=== PATIENT | female | born 1950 | race Caucasian/White ===

== ENCOUNTER → 2018-01-08 09:30 | Outpatient (CLI) | payer OTHER, SELFPAY ==
[2018-01-08 10:56] LABS: Hematocrit 41.8 % (36-46); Hemoglobin 14.2 g/dL (12.0-16.0); Mean Corpuscular HGB Conc 34.1 % (30-36); Mean Corpuscular Hemoglobin 31.5 PG (26-34); Mean Corpuscular Volume 92.4 fL (80-100); Platelet Count 320 X10^3/uL (150-400); Red Blood Cell Count 4.52 X10^6/uL (4.0-5.2); Red Cell Distribution Width 13.5 % (11.6-14.8); White Blood Cell Count 5.4 X10^3/uL (4.5-11.0)
[2018-01-08 11:01] LABS: Hemoglobin A1C% w Est Avg Glu 5.4 % (4.0-6.0)
[2018-01-08 11:36] LABS: Alanine Aminotransferase 32 IU/L (9-52); Albumin 4.4 g/dL (3.5-5.0); Albumin Globulin Ratio 1.5 (1.0-2.8); Alkaline Phosphatase 78 U/L (38-126); Aspartate Aminotransferase 31 IU/L (14-36); BUN Creatinine Ratio 22.9 (6-22); Bilirubin Total 0.9 mg/dL (0.2-1.3); Blood Urea Nitrogen 16 mg/dL (7-17); Calcium 9.2 mg/dL (8.4-10.2); Carbon Dioxide 32 mmol/L (22-32); Chloride 96 mmol/L (98-107); Cholesterol 260 mg/dL (140-199); Estimated Glomerular Filt Rate > 60.0 mL/min (>60); Globulin 2.9 g/dL (1.7-4.1); Glucose 100 mg/dL (80-110); HDL Cholesterol 62 mg/dL (40-60); HEMOLYSIS < 15 (0-50); LDL Cholesterol Calculated 168 mg/dL (<100); Potassium 3.8 mmol/L (3.4-5.1); Sodium 139 mmol/L (137-145); Total Protein 7.3 g/dL (6.3-8.2); Triglycerides 152 mg/dL (35-150)
[2018-01-08 12:16] LABS: Hep C Virus Ab w/Reflex Quant NEGATIVE s/c (NEGATIVE)
== END ==
PROVIDERS: PCP Nurse Practitioner Family; Visit Provider Nurse Practitioner Family
DX: Z13.1 Encounter for screening for diabetes mellitus (principal); I10 Essential (primary) hypertension; E78.5 Hyperlipidemia, unspecified; Z11.59 Encounter for screening for other viral diseases
CPT/HCPCS: 36415; 80053; 80061; 83036; 84443; 85027; 86803

== ENCOUNTER → 2019-10-12 10:46 | Outpatient (CLI) | payer OTHER, SELFPAY ==
--- NOTE | 2019-10-12 10:47 | DI.RAD.S_ITS ---
PROCEDURE: XR WRIST LT MIN 3V INDICATIONS: l wrist pain TECHNIQUE: 4 views of the wrist were acquired. COMPARISON: None. FINDINGS: Bones: No fractures or dislocations. No suspicious bony lesions. Degenerative changes are seen throughout, which are most prominent involving the 1st carpometacarpal joint. Milder degenerative changes are seen elsewhere. Scaphoid view: No navicular fractures are seen. Soft tissues: No suspicious soft tissue calcifications. IMPRESSION: No displaced fractures are seen. If there is snuffbox tenderness (or other clinical suspicion for a fracture not seen on these images) then a repeat examination would be recommended in 10 to 14 days, following splinting. Dictated by: Jasbir Li M.D. on 10/12/2019 at 10:18 Approved by: Jasbir Li M.D. on 10/12/2019 at 10:19
== END ==
PROVIDERS: Family Provider Nurse Practitioner Family; PCP Internal Medicine; Referring Provider Physician Assistant; Visit Provider Physician Assistant
DX: M25.532 Pain in left wrist (principal)
CPT/HCPCS: 73110

== ENCOUNTER → 2019-10-24 16:51 | Outpatient (CLI) | payer OTHER, SELFPAY ==
--- NOTE | 2019-10-24 17:11 | DI.MG.S_ITS ---
Patient Name: ZACHERY SANCHEZ date: 1950 Sex: F Attending Physician: Tavia Indications: Date: 10/24/2019 17:30 At the request of: GREG PALMA Procedure: MM screening mammo BI BILATERAL DIGITAL SCREENING MAMMOGRAM 3D/2D WITH CAD: 10/24/2019 CLINICAL: Routine screening. Comparison is made to exams dated: 09/19/2016 mammogram, 11/04/2014 mammogram, and 01/08/2011 mammogram - [facility]. The tissue of both breasts is heterogeneously dense. This may lower the sensitivity of mammography. Current study was also evaluated with a Computer Aided Detection (CAD) system. No significant masses, calcifications, or other findings are seen in either breast. There has been no significant interval change. IMPRESSION: NEGATIVE There is no mammographic evidence of malignancy. A 1 year screening mammogram is recommended. This exam was interpreted at Station ID: [id number]. NOTE: For mammograms, a report in lay terms will be sent to the patient. Approximately 15% of breast malignancies will not be visualized mammographically. In the management of a palpable breast mass, a negative mammogram must not discourage biopsy of a clinically suspicious lesion. Electronically Signed By: Omega foster/elias:10/25/2019 09:43:10 letter sent: Normal Exam ACR BI-RADS Category 1: Negative 3341F
== END ==
PROVIDERS: Family Provider Nurse Practitioner Family; PCP Internal Medicine; Referring Provider Internal Medicine; Visit Provider Internal Medicine
DX: Z12.31 Encounter for screening mammogram for malignant neoplasm of breast (principal)
CPT/HCPCS: 77063; 77067

== ENCOUNTER → 2020-05-06 08:54 | Outpatient (CLI) | payer OTHER, SELFPAY ==
[2020-05-06] MEDS: COVID-19 VACC, Ad26(JANSSEN)/PF 0.5 ML IM (09:04)
== END ==
PROVIDERS: Family Provider Nurse Practitioner Family; PCP Internal Medicine; Visit Provider Internal Medicine
DX: Z23 Encounter for immunization (principal)
CPT/HCPCS: 0031A; 91303

== ENCOUNTER → 2022-04-18 12:18 | Outpatient (CLI) | payer OTHER, SELFPAY | PROVIDERS: Family Provider Nurse Practitioner Family; PCP Internal Medicine; Referring Provider Internal Medicine; Visit Provider Internal Medicine | DX: Z13.820 Encounter for screening for osteoporosis (principal); Z78.0 Asymptomatic menopausal state; M85.851 Other specified disorders of bone density and structure, right thigh; Z87.311 Personal history of (healed) other pathological fracture | CPT/HCPCS: 77080 ==

== ENCOUNTER → 2022-04-20 07:42 | Outpatient (CLI) | payer OTHER, SELFPAY ==
--- NOTE | 2022-04-20 | DI.MG.S_ITS ---
BILATERAL DIGITAL SCREENING MAMMOGRAM 3D/2D WITH CAD: 04/20/2022 CLINICAL: Routine screening. Comparison is made to exams dated: 10/24/2019 mammogram, 09/19/2016 mammogram, and 11/04/2014 mammogram - [facility]. Both breasts are heterogeneously dense, which may obscure small masses (category c / 51-75% glandular tissue). Current study was also evaluated with a Computer Aided Detection (CAD) system. No significant masses, calcifications, or other findings are seen in either breast. There has been no significant interval change. IMPRESSION: NEGATIVE There is no mammographic evidence of malignancy. A 1 year screening mammogram is recommended. Based on the Tyrer Cuzick model (a risk assessment model) the patient's lifetime risk is 4.7% and her 10 year risk is 2.8%. According to the ACR, ACS, and NCCN guidelines, an annual breast MRI exam along with mammogram is recommended if the patient's lifetime risk is 20% or greater. This exam was interpreted at Station ID: [id number]. NOTE: For mammograms, a report in lay terms will be sent to the patient. Approximately 15% of breast malignancies will not be visualized mammographically. In the management of a palpable breast mass, a negative mammogram must not discourage biopsy of a clinically suspicious lesion. Electronically Signed By: Omega foster/elias:04/20/2022 08:07:32 letter sent: Normal Exam ACR BI-RADS Category 1: Negative 3341F
== END ==
PROVIDERS: Family Provider Nurse Practitioner Family; PCP Internal Medicine; Referring Provider Internal Medicine; Visit Provider Internal Medicine
DX: Z12.31 Encounter for screening mammogram for malignant neoplasm of breast (principal)
CPT/HCPCS: 77063; 77067

== ENCOUNTER → 2022-05-04 16:59 | Outpatient (CLI) | payer OTHER, SELFPAY ==
--- NOTE | 2022-05-04 | DI.RAD.S_ITS ---
PROCEDURE: XR HIP W PEL IF DONE LT 2V INDICATIONS: [employer]ef[employer] HIP PAIN TECHNIQUE: AP pelvis with lateral view of the left hip. COMPARISON: None. FINDINGS: Bones: No acute fractures or dislocations. Pelvic ring appears intact. No suspicious bony lesions. Severe joint space narrowing is seen in the left hip with subchondral sclerosis, marginal osteophyte formation, and remodeling of the articular surfaces. There is chronic superolateral subluxation of the humeral head. Mild degenerative changes are seen in the right hip. Degenerative changes also noted in the included lumbar spine. Soft tissues: The visualized bowel gas pattern is normal. No suspicious soft tissue calcifications. IMPRESSION: 1. Severe asymmetric degenerative changes within the left hip with subchondral sclerosis and remodeling of the articular surfaces. There is mild chronic superolateral subluxation of the femoral head relative to the acetabulum. 2. Mild right hip osteoarthrosis. 3. Degenerative changes in the included lumbar spine. Approved by: Brian Welsh M.D. on 05/05/2022 at 10:30
== END ==
PROVIDERS: Family Provider Nurse Practitioner Family; PCP Internal Medicine; Referring Provider Internal Medicine; Visit Provider Internal Medicine
DX: M24.452 Recurrent dislocation, left hip (principal); M16.11 Unilateral primary osteoarthritis, right hip; M25.552 Pain in left hip; M47.816 Spondylosis without myelopathy or radiculopathy, lumbar region
CPT/HCPCS: 73502

== ENCOUNTER → 2022-07-20 16:25 | Outpatient (CLI) | payer OTHER, SELFPAY ==
[2022-07-20 16:56] LABS: Appearance Urine UA CLEAR; Bilirubin Urine UA NEGATIVE (NEGATIVE); Color Urine UA YELLOW; Glucose Urine UA NEGATIVE (Negative); Ketones Urine UA NEGATIVE (NEGATIVE); Leukocyte Esterase Urine UA NEGATIVE (NEGATIVE); Nitrite Urine UA NEGATIVE (Negative); Occult Blood Urine UA NEGATIVE (Negative); Protein Urine UA NEGATIVE (Negative); Specific Gravity Urine UA <=1.005 (1.000-1.035); Urobilinogen Urine UA 0.2 E.U./dL (0.2)
[2022-07-20 17:01] LABS: Add Manual Diff / Slide Review NO; Basophils Absolute Auto 100 /uL (0-100); Basophils Percent Auto 0.9 % (0-2); Eosinophils Absolute Auto 100 /uL (0-450); Eosinophils Percent Auto 1.5 % (2-4); Hematocrit 38.8 % (36-46); Hemoglobin 13.6 g/dL (12.0-16.0); Lymphocytes Absolute Auto 3900 /uL (1100-4500); Lymphocytes Percent Auto 39.8 % (25-40); Mean Corpuscular HGB Conc 34.9 % (30-36); Mean Corpuscular Hemoglobin 31.5 PG (26-34); Mean Corpuscular Volume 90.2 fL (80-100); Monocytes Absolute Auto 800 /uL (0-900); Monocytes Percent Auto 7.7 % (3-14); Neutrophils Absolute Auto 5000 /uL (1500-7000); Neutrophils Percent Auto 50.1 % (50-75); Platelet Count 347 X10^3/uL (150-400); Red Blood Cell Count 4.31 X10^6/uL (4.0-5.2); Red Cell Distribution Width 14.2 % (11.6-14.8); White Blood Cell Count 9.9 X10^3/uL (4.5-11.0)
[2022-07-20 17:09] LABS: Bacteria Urine None Seen; Culture Indicated Urine Cult Not Indicated; RBC Urine None Seen (0-5/HPF); Squamous Epithelial Cell Urine None Seen (0-5/HPF); WBC Urine None Seen (0-5/HPF)
[2022-07-20 18:06] LABS: BUN Creatinine Ratio 30.4 (6-22); Blood Urea Nitrogen 17 mg/dL (7-17); Calcium 9.9 mg/dL (8.4-10.2); Carbon Dioxide 30 mmol/L (22-32); Chloride 94 mmol/L (98-107); Estimated Glomerular Filt Rate > 60 mL/min (>60); Glucose 92 mg/dL (80-110); HEMOLYSIS 25 (0-50); Potassium 4.2 mmol/L (3.4-5.1); Sodium 133 mmol/L (137-145)
[2022-07-21 06:04] LABS: x Labcorp Estim. Avg Glu (eAG) 111 mg/dL (.); x Labcorp Hemoglobin A1c 5.5 % (4.8-5.6)
== END ==
PROVIDERS: Family Provider Nurse Practitioner Family; PCP Internal Medicine; Referring Provider Orthopaedic Surgery; Visit Provider Orthopaedic Surgery
DX: Z01.812 Encounter for preprocedural laboratory examination (principal); N39.0 Urinary tract infection, site not specified; R73.9 Hyperglycemia, unspecified
CPT/HCPCS: 36415; 80048; 81001; 83036; 85025; 93005; 93010

== ENCOUNTER 2022-07-28 08:48 | Day surgery (SDC) | payer OTHER, SELFPAY ==
[2022-07-28] VITALS (13 sets, daily range): BP systolic 127–168; BP diastolic 56–95; PULSE 56–77; RESP 16–19; TEMP 36.1–37.3; O2SAT 94–98
--- NOTE | 2022-07-28 | DI.RAD.S_ITS ---
PROCEDURE: XR PELVIS 1-2V INDICATIONS: intra op TECHNIQUE: Intra-operative view of the pelvis and hip acquired. COMPARISON: None. FINDINGS: Bones: Intraoperative devices prior to placement of arthroplasty prostheses are in expected positions. No fractures or suspicious bony lesions. Soft tissues: Overlying surgical retractors are present, along with other intraoperative changes. IMPRESSION: Left Total hip trial hardware, without significant leg length discrepancy. Dictated by: Lanre Lozano M.D. on 07/28/2022 at 14:14 Approved by: Lanre Lozano M.D. on 07/28/2022 at 14:15
--- NOTE | 2022-07-28 07:19 | DI.RAD.S_ITS ---
PROCEDURE: XR HIP W PEL IF DONE LT 2V INDICATIONS: JANAY TECHNIQUE: AP pelvis and lateral view of the left hip acquired. COMPARISON: [facility], [place], XR HIP W PEL IF DONE LT 2V, 05/04/2022, 17:13. FINDINGS: Bones: Patient is status post left hip arthroplasty, with hardware components in expected positions. The hip joint appears congruent. The visualized bony structures appear intact. Soft tissues: Overlying postoperative changes are noted. No suspicious soft tissue densities. IMPRESSION: Expected postoperative appearance of the left total hip arthroplasty. Dictated by: Lanre Lozano M.D. on 07/28/2022 at 15:24 Approved by: Lanre Lozano M.D. on 07/28/2022 at 15:24
[2022-07-28] MEDS: PREGABALIN 75 MG CAPSULE PO (09:45)
[2022-07-28] MEDS: CELECOXIB 200 MG CAPSULE PO (09:45)
[2022-07-28] MEDS: ACETAMINOPHEN 325 MG TABLET 975 MG PO (09:46)
[2022-07-28] MEDS: VANCOMYCIN 1,000 MG/200 ML PIGGYBACK 200 MG IV (10:04)
--- NOTE | 2022-07-28 10:45 | PM.PREOP ---
Pre-operative Note Interval Note History & Physical reviewed/Exam performed by Physician: Yes Changes to H&P: No
--- NOTE | 2022-07-28 10:46 | PM.OP.1 ---
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 Non-operative management has failed and the patient has requested total hip replacement. The risks, benefits and alternatives to surgery were discussed with the patient prior to proceeding. Risks discussed included, but were not limited to, failure to relieve pain, leg length discrepancy, dislocation, stiffness, infection, nerve damage, deep venous thrombosis, pulmonary embolism, stroke, coma, heart attack, permanent paralysis and , as well as the potential need for eventual revision of the prosthetic. Surgeon: Aurora Whitlock Account Resolution Specialist: Neena Sanchez Anesthesia Type: General Operative Notes Findings: Severe hip osteoarthritis, markedly abnormal acetabulum, adequate stability and adequate stability and positioning of the acetabulum Closure Type: primary Specimen(s): none sent Prosthetic devices, grafts, tissues, transplants, or devices: Whitlock and nephew redapt acetabular cup size 54, 4 screws 3 locking and 1 standard, dual mobility liner, polar size 0 collared femoral stem, 42 x 54 mm dual mobility, 20 mm +0 femoral head Estimated Blood Loss (mL): 250 Procedure in detail: The patient was seen in the pre-operative area, where the patient identified the left hip as the operative site and this was marked with my initials. The patient received pre-operative antibiotics and was taken to the operating room and placed on the operative table in the right lateral decubitus position after satisfactory anesthesia. A multimedia manager out was performed. The left leg was prepared from the ankle to the iliac crest with ChloroPrep in the usual fashion and draped through sterile drapes. A PA was used throughout the procedure and was essential for retraction hemostasis and safe implantation of the components. The hip was approached through an approximately 20 cm incision centered over the greater trochanter and curving gently posteriorly as it went proximally. This was carried sharply to the fascia ja, which was divided and retracted with a self retaining retractor. The trochanteric bursa was excised with care being taken to avoid the sciatic nerve, which was identified and protected throughout the case. The short external rotators were incised and the capsulomuscular flap was raised and tagged for later repair. The hip was dislocated, and a femoral neck osteotomy performed approximately 15 mm above the lesser trochanter. She had a markedly abnormal femur. She had significant thickening of her femoral neck marked flattening of the femoral head. There was also a large loose anterior body which was carefully removed. Meticulous dissection was carried out around the hip. Retractors were placed around the femur. The canal was opened with a box cutting osteotome, followed by a T handled reamer and a lateralizing reamer. The chili pepper broach was then used, followed by sequential broaching until there was good stability of the broach in the femur. Retractors were placed to expose the acetabulum. The labrum and central soft tissues were removed. Reaming was performed initially going up in 2 mm increments, then 1 mm increments until good bite was obtained with an odd sized reamer. The cup had substantial deformity. I specifically worked to medialized the cup to place it in a more anatomic location. There was a false acetabulum more superiorly. We meticulously dissected around the acetabulum and then used a fairly small Reamer to centralize it I then reamed it up until I had reasonable coverage. It was quite oblique and really could not go larger on the reaming. The cup 1 mm larger than the last reamer was then inserted using the appropriate anteversion guides. It was further stabilized with initially 2 screws including a locking screws. A trial neutral liner was placed. A trial head and neck were then placed and the hip relocated and checked for leg length and stability. An intraoperative film confirmed the component position and no evidence of fracture. The patient was stable in the position of sleep, of squatting, and could be put through a range of motion with 45 degrees internal rotation without dislocation. At 90 degrees flexion, internal rotation to 70? was possible before dislocation. This was felt to be satisfactory and the appropriate components were opened, and the trials were removed. The acetabulum stability was checked but I felt they should provide additional screws and 2 additional locking screws were placed. The dual mobility acetabular liner was impacted into position. The final stem was then impacted into the prepared femoral canal. A brief Betadine soak was performed while trialing with head options. The hip was meticulously irrigated with normal saline. Finally the femoral head was impacted onto the stem. The acetabulum was cleared of all material and the hip relocated one final time. The capsulomuscular flap was then repaired to the greater trochanter though an awl hole using the tag sutures. The short external rotators were repaired with a nonabsorbable suture. The fascia ja was closed with Vicryl. The subcutaneous layer was closed with barbed sutures and surgical glue. An Aquacel Ag dressing was applied and the patient was taken to recovery having tolerated the procedure well. Complications: none Post-operative Condition: stable Disposition: Acute Care Plan for aftercare: The patient will be maintained on a standard total hip replacement protocol with weight bearing as tolerated and posterior hip precautions. The patient will receive Aspirin and sequential compression devices for DVT prophylaxis. The patient will be discharged home when safe for the home environment.
[2022-07-28] MEDS: CEFAZOLIN 2 GM/100 ML PREMIX 100 ML IV ×2 (11:44→21:20)
--- NOTE | 2022-07-28 12:14 | SUR.OPER ---
Lateral on padded OR bed. Gel axillary roll. Arms secured on padded armboard with pillow supporting top arm. Padded hip positioner braces x4 - anterior and posterior chest and pelvis. Additional gel pad used anterior pelvis. Gel pad under bottom leg from knee to foot and secured with tape over sheet.
[2022-07-28] MEDS: TRANEXAMIC ACID 1,000 MG VIAL 2000 MG INJ ×2 (12:19→14:12)
[2022-07-28] MEDS: BUPIVACAINE LIPOSOME 266 MG/20 ML VIAL INJ (12:21)
[2022-07-28] MEDS: EPINEPHrine 1 MG/ML 0.3 MG SUBCUT (12:25)
[2022-07-28] MEDS: BUPIVACAINE 0.5% (PF) 10 ML VIAL 30 ML INJ (12:26)
[2022-07-28] MEDS: LACTATED RINGERS 1,000 ML 42 ML IV (13:24)
[2022-07-28] MEDS: SCOPOLAMINE 1 PATCH TOP (13:48)
[2022-07-28] MEDS: ONDANSETRON 4 MG/2 ML INJ IV (15:02)
[2022-07-28] MEDS: OXYCODONE/ACETAMINOPHEN 5/325 TABLET 1 TAB PO ×2 (15:02→15:26)
[2022-07-28] MEDS: hydrOXYzine pamoate 25 MG CAPSULE PO ×2 (15:31→21:17)
[2022-07-28] MEDS: LACTATED RINGERS 1,000 ML 100 ML IV (16:00)
--- NOTE | 2022-07-28 16:02 | PT-IP ANOTE ---
PT courtney received. EMR reviewed. checked pt and nurse in room. Pt stated that she wants to wait first until the pain medication starts working. Nurse stated that pt just got her pain meds. will f/u.
[2022-07-28] MEDS: IBUPROFEN 400 MG TABLET PO ×3 (17:42→23:23)
[2022-07-28] MEDS: ACETAMINOPHEN 325 MG TABLET 650 MG PO ×2 (17:42→21:18)
--- NOTE | 2022-07-28 18:27 | PT.IIE ---
Addendum entered and electronically signed by Re Whitlock PT 07/29/22 11:53: Visit start time 15:36, visit end time 16:12 Original Note: Current Diagnoses Other unilateral secondary osteoarthritis of hip (07/28/22) Surgery Performed Operation Date: 07/28/22 10:45 Actual Procedures p Total Hip Arthroplasty(Left) - Aurora Whitlock MD Surgical History (Last Updated 07/21/22 @ 13:12 by Juana Vo, RN) History of dilation and curettage Hx of tubal ligation Medical History (Last Updated 07/21/22 @ 13:12 by Juana Vo, RN) Anesthesia complication Anxiety Easy bruisability Elevated cholesterol HTN (hypertension) Osteoarthritis SCC (squamous cell carcinoma) Seasonal allergies Physical Therapy Inpatient Evaluation/Re-Eval M1 PT/OT-IP Prior Functional Status Start: 07/28/22 18:14 Freq: NEEDED Status: Active Protocol: Document 07/28/22 18:14 ES (Rec: 07/28/22 18:27 ES [id number]) Medical Review Prior Functional Status Medical History Reviewed Yes Diet/Fluid Consistency Regular Communication Indep Mobility and Gait Indep with cane/trekking poles Activities of Daily Living and IADL's Indep Social History Household Members spouse Living Arrangements House Number of Floors (Floors) One Floor Number of Stairs To Enter/Railing? 2 without rails, has gutierrez on both sides Home Environment Standard Height Toilet,Walk in Shower Home Equipment Front Wheel Walker,Straight Cane,Communication Analyst Additional Social History Comment Has a sink and wall next to the toilet. M2 PT-IP Current Condition Start: 07/28/22 18:14 Freq: NEEDED Status: Active Protocol: Document 07/28/22 18:14 ES (Rec: 07/28/22 18:27 ES [id number]) Physical Therapy Current Condition Current Condition Evaluation Date 07/28/22 Treatment Diagnosis S/p L JANAY Onset Date 07/28/22 M3 PT-IP Subjective Start: 07/28/22 18:14 Freq: NEEDED Status: Active Protocol: Document 07/28/22 18:14 ES (Rec: 07/28/22 18:27 ES [id number]) Subjective Physical Therapy Visit Type Type Initial Evaluation Visit Start Time 05:36 Visit Stop Time 06:12 Total Visit Minutes 36 Physical Therapy Visit Comments Patient Comments Patient alert in bed, spouse present at start of treatment and will be back tomorrow morning. Patient stated she is glad to see PT and wanted to get out of bed. Was concerned about her leg turning out as that it what it likes to do naturally. Therapy Pain Assessment Pain When Pain Assessed After Treatment Pain Present Pain Present Pain Reported Location Left Hip Intensity 3 Scale Used Numeric (0 - 10) Pain Management Techniques Apply Cold,Timing of Activity with Medications M4 PT-IP Mobility and Gait Start: 07/28/22 18:14 Freq: NEEDED Status: Active Protocol: Document 07/28/22 18:14 ES (Rec: 07/28/22 18:27 ES [id number]) PT-Bed Mobility Assessment Supine to Sit Supine to Sit Standby Assistance Scooting Scooting to Edge of Bed Standby Assistance Scooting Up and Down in Bed Standby Assistance PT-Transfer Assessment Sit to and From Stand Sit to and from Stand Contact Guard Assistance,Use of Upper Extremities Equipment Transfer Assistive Device Gait Belt,Front Wheeled Walker Transfers Transfer Destination Chair Transfer Technique Ambulation Transfer Ability Level of Assist Contact Guard Assistance,Use of Upper Extremities Comments Mobility Comments Instructed in placing L foot forward during STS to reduce hip flexion with good patient demonstration. Gait Assessment Gait Gait Assistance Required: Contact Guard Assist Distance (Feet) 10 Assistive Devices Assistive Device Gait Belt,Front Wheeled Walker Gait Deviations General Gait Pattern Antalgic,Step-to Gait Factors Limiting Gait Function Factors Limiting Gait Function Decreased Sensation,Decreased Strength Comments Gait Comments Patient reported her lower leg still felt numb when she stood so did not progress ambulation further. Cued patient to increase UE support during L stance to reduce risk of buckling/falling. Stair Climbing Assessment Comments Stair Climbing Comments Did not assess due to numbness and difficulty with LLE WB. PT-Balance Assessment Sitting Balance and Reactions Static Sitting Balance Ability Good Dynamic Sitting Balance Ability Good Standing Balance and Reactions Static Standing Balance Ability Good Dynamic Standing Balance Ability Fair Device Used FWW M5 PT-IP Objective Assessments Start: 07/28/22 18:14 Freq: NEEDED Status: Active Protocol: Document 07/28/22 18:14 ES (Rec: 07/28/22 18:27 ES [id number]) Orientation Orientation/Cognition Level of Alertness Alert Orientation Name,Age,Birthday,Month,Date, Year,Day of Week,Place, Situation Language Function Ability No Deficits Noted Safety Awareness Understands Safety Issues Memory Description No Deficits Noted Gross Range of Motion Upper Extremity ROM Assessment Within Functional Limits Lower Extremity ROM Assessment Left Impaired Impairments 2/2 hip precautions, pain Strength Upper Extremity Strength Assessment Within Functional Limits Lower Extremity Strength Assessment Left Impaired Comments Strength Comments 2/2 surgery; able to move LLE against gravity Sensation Assessment Comments Sensation Comments Patient reported numbness in L lower leg M6 PT-IP Treatment Start: 07/28/22 18:14 Freq: NEEDED Status: Active Protocol: Document 07/28/22 18:14 ES (Rec: 07/28/22 18:27 ES [id number]) Physical Therapy Treatment Exercises Exercises Ankle Pumps,Gluteal Sets,Quad Sets,Heel Slides,Supine Hip Abduction Education Education Provided Precautions,Weight Bearing Status,Post-Op Packet,Safety M7 PT-IP Assessment and Plan Start: 07/28/22 18:14 Freq: NEEDED Status: Active Protocol: Document 07/28/22 18:14 ES (Rec: 07/28/22 18:27 ES [id number]) PT Summary Assessment and Plan Potential Rehabilitation Potential Excellent Status of Condition at Evaluation Stable Summary Impairments Pain,ROM,Strength,Balance, Sensation,Bed Mobility, Transfers,Gait Assessment Summary Patient is a 71 year old female POD #0 s/p L JANAY. She was able to perform bed mobility with supervision and transfers and very short distance gait with FWW with CGA. Her pain was fairly well controlled and patient declined further pain meds. She was able to demonstrate good understanding of JANAY HEP with good quad and glute activation and minimal increase in pain, and was able to follow hip precautions with minimal cueing. She still had some numbness in LLE so was not appropriate to ambulate further or attempt stairs. She will benefit from further PT to progress ambulation and for stair training prior to d/c home. Goals Bed Mobility Goal Independent Transfer Goal Independent,Front Wheeled Walker Gait Goal Independent,Front Wheel Walker Gait Distance 100 ft Other Goals Patient will be able to ascend /descend 2 stairs without rail with LRAD and SBA/LOADING UNIT OPERATOR SEATING. Days to Meet Goals 3 Frequency of Treatment Frequency Of Treatment Twice a Day Treatment Plan Physical Therapy Treatment Plan Bed Mobility Training,Transfer Training,Gait Training, Therapeutic Exercise,Post Op Education,Discharge Planning, Hot or Cold Pack Precautions Posterior Hip Precautions No Hip Flexion > 90 degrees,No Hip Internal Rotation,No Hip Adduction Weight Bearing Status Weight Bearing Status Weight Bear as Tolerated Recommendations To Nursing Amount of Assist Needed 1 Person Assist Discharge Recommendations PT Discharge Recommendations Home with Assistance, Outpatient PT Transportation Needs at Discharge Private Vehicle
[2022-07-28] MEDS: ONDANSETRON 4 MG ODT PO (21:17)
[2022-07-28] MEDS: ASPIRIN EC 81 MG TABLET PO (21:20)
[2022-07-28] MEDS: DOCUSATE 100 MG CAPSULE PO (21:21)
[2022-07-29] VITALS (10 sets, daily range): BP systolic 82–142; BP diastolic 33–72; PULSE 64–75; RESP 17–18; TEMP 36.1–37.6; O2SAT 97
[2022-07-29] MEDS: CEFAZOLIN 2 GM/100 ML PREMIX 100 ML IV (04:47)
[2022-07-29] MEDS: ACETAMINOPHEN 325 MG TABLET 650 MG PO (04:47)
[2022-07-29] MEDS: IBUPROFEN 400 MG TABLET PO ×4 (04:47→15:02)
[2022-07-29] MEDS: hydrOXYzine pamoate 25 MG CAPSULE PO ×2 (04:54→13:21)
[2022-07-29 06:07] LABS: Hematocrit 29.7 % (36-46); Hemoglobin 10.2 g/dL (12.0-16.0)
--- NOTE | 2022-07-29 07:55 | P.DS_ITS ---
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 Non-operative management has failed and the patient has requested total hip replacement. The risks, benefits and alternatives to surgery were discussed with the patient prior to proceeding. Risks discussed included, but were not limited to, failure to relieve pain, leg length discrepancy, dislocation, stiffness, infection, nerve damage, deep venous thrombosis, pulmonary embolism, stroke, coma, heart attack, permanent paralysis and , as well as the potential need for eventual revision of the prosthetic. Surgeon: Aurora Whitlock Net Developer Programmer: Neena Sanchez Anesthesia Type: General Operative Notes Findings: Severe hip osteoarthritis, markedly abnormal acetabulum, adequate stability and adequate stability and positioning of the acetabulum Closure Type: primary Specimen(s): none sent Prosthetic devices, grafts, tissues, transplants, or devices: Whitlock and nephew redapt acetabular cup size 54, 4 screws 3 locking and 1 standard, dual mobility liner, polar size 0 collared femoral stem, 42 x 54 mm dual mobility, 20 mm +0 femoral head Estimated Blood Loss (mL): 250 Discharge Providers Provider Discharge Date: 07/29/22 Primary care physician: ANGEL Smith Consults: 07/28/22 07:19 Consult to Anesthesiology Routine Comment: Consulting Provider: Anesthesiologist Reason for consultation: Regional block for post operative pain control 07/28/22 15:47 Consult to Discharge Planning Routine Comment: Consult to Occupational Therapy Evaluate & Treat Comment: Physician Instructions: Evaluate and treat Consult to Physical Therapy Evaluate & Treat Comment: Physician Instructions: post op JANAY protocol Discharge provider: Neena Sanchez PA-C Summary Hospital Course Discharge Diagnosis: 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 On POD# 1, she was feeling well and wanted to go home. She was eating and voiding without difficulty, and her pain was well-controlled with oral medication. She had worked w/ PT, and they felt she was safe for discharge home after another session with them prior to discharge. Exam Vital Signs (past 8 hours): - 07/29/22 03:05 Temperature 97.0 F L Pulse Rate 64 Respiratory Rate 18 Blood Pressure 142/72 H Pulse Oximetry 97 Oxygen Flow Rate 0 Oxygen Delivery Method Room Air Oxygen Flow Rate 0 Narrative Exam Narrative: 5/5 strength in hip flexors, quadriceps, hamstrings, DF, PF, EHL on left. Sensation to light touch intact throughout LLE. Calf soft, compressible, nontender and without palpable cords or masses. Aquacel dressing CDI. 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 Multimodal pain control will include tramadol and vistaril. ASA BID x 6 wks for VTE prophylaxis. Outpt PT, f/u in office in 2 weeks as scheduled. Discharge Plan Discharge Plan Patient Disposition: Home Discharge orders & Medications Discharge Orders: Discharge (Order); Ordered 07/29/22 Ordered By: Neena Sanchez Prescriptions: New tramadol 50 mg Tablet 50 mg PO Q4-6H PRN (Reason: Pain, Moderate (4-6)) Qty: 60 0RF hydroxyzine pamoate 25 mg Capsule 25 mg PO Q4-6H PRN (Reason: Muscle Spasm) Qty: 60 0RF Continued metoprolol succinate 100 mg Tablet Extended Release 24 Hr 100 mg PO DAILY hydrochlorothiazide 25 mg Tablet 25 mg PO DAILY losartan 100 mg Tablet 100 mg PO DAILY aspirin 325 mg Tablet 325 mg PO BEDTIME aspirin [Aspir-81] 81 mg Tablet,Delayed Release (Dr/Ec) 162 mg PO DAILY Follow up/Referrals: Yelena Squires ARNP [Primary Care Provider] - Aurora Whitlock MD [Physician] - As previously scheduled (Follow up with Senthil Keller PA-C, on 08/10/2022 @ 9:50 am at [facility] in [place].) Diet/Activity/Treatments Diet: Diet as Tolerated Activity: Weightbearing as tolerated to left leg. Posterior hip precautions. Cold/Heat Therapy: Ice to hip as needed for pain. Skin/Wound/Dressing Care Report to your healthcare provider any signs of infection, such as:: chills, fever, night sweats, unusual drainage and unusual redness Dressing: May shower. Leave Aquacel dressing in place until follow up in office. No bathing or otherwise soaking incision. Call the office if the dressing becomes saturated inside. Visit Report/Discharge Packet Instructions: DI for Hip Replacement Stand Alone Forms: Patient Portal/API, Surgery Discharge Discharge Data Primary Care Provider: Yelena Squires Attending Provider: Aurora Whitlock Quality VTE Deep Vein Thrombosis/Pulmonary Embolism Present on Admission: No
[2022-07-29] MEDS: METOPROLOL ER 50 MG TABLET 100 MG PO (08:18)
[2022-07-29] MEDS: DOCUSATE 100 MG CAPSULE PO (08:18)
[2022-07-29] MEDS: hydroCHLOROthiazide 25 MG TABLET PO (08:19)
[2022-07-29] MEDS: ASPIRIN EC 81 MG TABLET 162 MG PO (08:19)
[2022-07-29] MEDS: LOSARTAN 50 MG TABLET 100 MG PO (08:19)
--- NOTE | 2022-07-29 09:23 | OT.IP.EVAL ---
Current Diagnoses Other unilateral secondary osteoarthritis of hip (07/28/22) Presence of unspecified artificial hip joint (07/28/22) Surgery Performed Operation Date: 07/28/22 10:45 Actual Procedures p Total Hip Arthroplasty(Left) - Aurora Whitlock MD Past Medical History (Last Updated 07/21/22 @ 13:12 by Juana Vo, RN) Anesthesia complication Anxiety Easy bruisability Elevated cholesterol HTN (hypertension) Osteoarthritis SCC (squamous cell carcinoma) Seasonal allergies Surgical History (Last Updated 07/21/22 @ 13:12 by Juana Vo RN) History of dilation and curettage Hx of tubal ligation Occupational Therapy Inpatient Evaluation/Re-Eval M1 PT/OT-IP Prior Functional Status Start: 07/28/22 18:14 Freq: NEEDED Status: Active Protocol: Document 07/28/22 18:14 ES (Rec: 07/28/22 18:27 ES [id number]) Medical Review Prior Functional Status Medical History Reviewed Yes Diet/Fluid Consistency Regular Communication Indep Mobility and Gait Indep with cane/trekking poles Activities of Daily Living and IADL's Indep Social History Household Members spouse Living Arrangements House Number of Floors (Floors) One Floor Number of Stairs To Enter/Railing? 2 without rails, has gutierrez on both sides Home Environment Standard Height Toilet,Walk in Shower Home Equipment Front Wheel Walker,Straight Cane,Architecture Consultant Additional Social History Comment Has a sink and wall next to the toilet. M1 PT/OT-IP Prior Functional Status Start: 07/29/22 09:32 Freq: NEEDED Status: Active Protocol: Document 07/29/22 08:55 [facility] (Rec: 07/29/22 09:40 [facility] [id number]) Medical Review Prior Functional Status Medical History Reviewed Yes Diet/Fluid Consistency Regular Communication Indep Mobility and Gait Indep with cane/trekking poles Activities of Daily Living and IADL's Indep Social History Household Members spouse Living Arrangements House Number of Floors (Floors) One Floor Number of Stairs To Enter/Railing? 2 without rails, has gutierrez on both sides Home Environment Standard Height Toilet,Walk in Shower,Bidet Home Equipment Front Wheel Walker,Straight Cane,Architecture Consultant Additional Social History Comment Has a sink and wall next to the toilet. M2 OT-IP Current Condition Start: 07/29/22 09:32 Freq: Status: Active Protocol: Document 07/29/22 08:55 [facility] (Rec: 07/29/22 09:40 [facility] [id number]) Occupational Therapy Current Condition Current Condition Evaluation Date 07/29/22 Treatment Diagnosis S/P L JANAY Diagnosis Onset Date 07/28/22 Post Operative Precautions Posterior Hip Precautions No Hip Flexion > 90 degrees,No Hip Internal Rotation,No Hip Adduction M3 OT- IP Subjective and Pain Start: 07/29/22 09:32 Freq: Status: Active Protocol: Document 07/29/22 08:55 [facility] (Rec: 07/29/22 09:40 [facility] [id number]) OT- Subjective Occupational Therapy Visit Type Type Initial Evaluation Visit Start Time 08:55 Visit Stop Time 09: Total Visit Minutes 28 Occupational Therapy Visit Comments Patient Comments Pt agreed to get dressed and not wanting to shower at this time. Patient/Caregiver Goals To go home. OT Pain Assessment Pain When Pain Assessed At Rest Pain Present Pain Present Pain Reported Location Left Hip Intensity 4 Scale Used Numeric (0 - 10) M4 OT- IP ADL's Start: 07/29/22 09:32 Freq: Status: Active Protocol: Document 07/29/22 08:55 [facility] (Rec: 07/29/22 09:40 [facility] [id number]) OT GAC-Exge-Rcyohwt General Evaluation Self-Feeding Ability Independent OT ADL-Grooming General Evaluation Grooming Ability Independent OT ADL-Oral Care General Eval Oral Care Ability Independent Comments Oral Care Comments Pt states did prior. OT ADL-Dressing General Eval Upper Body Dressing Ability Minimal Assistance Lower Body Dressing Ability Minimal Assistance Comments OT Dressing Comments LORRAINE to get right sleeve of jacket on. LORRAINE to tread her pants all the way. Pt able to practice with use of stretching press operator. Pt states to have her assist with socks or just not wear socks for now. Educated to dress the left side first and take it our last. OT ADL-Toileting Comments OT Toileting Comments Pt has a bidet. Educated best to stand to wipe in order to best follow her hip precautions. OT ADL-Bathing Comments OT Bathing Comments Pt insisting to shower at home . M5 OT- IP IADL's Start: 07/29/22 09:32 Freq: Status: Active Protocol: Document 07/29/22 08:55 [facility] (Rec: 07/29/22 09:40 [facility] [id number]) OT-Instrumental Activities of Daily Living Deficits IADL Deficits Identified Deficits Home Safety Awareness Awareness of Need for Assistance at Home Good Awareness Ability to Problem Solve Emergency Able to Problem Solve Situations Home Safety Comments Pt has a supportive to assist with her needs. M6 OT- IP Functional Cognition Start: 07/29/22 09:32 Freq: Status: Active Protocol: Document 07/29/22 08:55 [facility] (Rec: 07/29/22 09:40 [facility] [id number]) Cognitive Factors Limiting Selfcare Function Cognitive Ability Level of Alertness Alert Patient Orientation Name,Age,Birthday,Month,Date, Year,Day of Week,Place, Situation Attention Span Ability Capable of Focused Attention, Capable of Sustained Attention Ability to Follow Commands Able to Follow Multi-Step Commands Memory Description No Deficits Noted Safety Awareness No Deficits Noted Problem Solving Ability No deficits Noted Executive Function Ability No Deficits Noted Cognitive Comments Cognitive Assessment Comments Pt intact OT- Vision and Hearing OT- Hearing Assessment OT- Hearing Assessment WFL M7 OT- IP Mobility and Balance Start: 07/29/22 09:32 Freq: Status: Active Protocol: Document 07/29/22 08:55 [facility] (Rec: 07/29/22 09:40 [facility] [id number]) OT-Transfer Assessment Sit to and From Stand Sit to and from Stand Standby Assistance Comments Mobility Comments SBA to stand form the chair so able to get dressed. BP after getting dressed 70/29 as pt felt nauseous, reclined 103/47 and 93/54, and sitting with legs up 114/57- nursing notified. OT- Balance Assessment Sitting Balance and Reactions Static Sitting Balance Ability Normal Dynamic Sitting Balance Ability Good Standing Balance and Reactions Static Standing Balance Ability Good M9 OT- IP Assessment and Plan Start: 07/29/22 09:32 Freq: Status: Active Protocol: Document 07/29/22 08:55 [facility] (Rec: 07/29/22 09:40 [facility] [id number]) OT Summary Assessment and Plan Potential Rehabilitation Potential Good Analytic Complexity at Evaluation Low Summary OT Impairments Pain,Balance,Dressing, Toileting,Bathing,Toilet Transfers,Shower Transfers Progress Towards Goals Progressing Toward Goals Assessment Summary Pt low complexity and main barriers are steps, having low BP, and pain. Pt has a supportive to assist with her needs at home. Pt to go home when medically stable . Goals Dressing Goal Independent Toileting Goal Independent Bathing Goal Independent Toilet Transfer Goal Independent Shower Transfer Goal Independent Days to Meet Goals 5 Frequency of Treatment Frequency Of Treatment Once a Day Treatment Plan OT Treatment Plan ADL Training,Functional Mobility,Patient/Family Education,Discharge Planning Discharge Recommendations OT Discharge Recommendations Home with Assistance, Outpatient PT Transportation Needs at Discharge Private Vehicle
--- NOTE | 2022-07-29 12:02 | CM.DANOTE ---
Patient is a 71 yo female who was admitted on 07/28/22 for LTHA. Pt has REG [employer] and MCR A ONLY for insurance and her PCP is Yelena Squires. EMR was reviewed. Per Ortho PA, pt tolerated procedure well and stable for d/c home today after PT/OT. Per PT/OT, pt ambulated well and recommending home with spouse assist and outpt PT although this morning had bp issues and likely should be safe for d/c home today pending orthostatics. SW met bedside with pt and OT and she confirms she lives at home in [place] with spouse and is active and independent at baseline and works for [employer] and therefore has outpt PT set up in [place] Pt is agreeable with d/c to home today and states her spouse will provide transport and pt has no concerns at this time and no hx of HH or SNF and spouse is informally her DPOA. Plan: SW to follow for plan of d/c home via spouse POV pending orthostatics today and outpt PT. JELENA Nair Discharge Planning/Care Management CM Discharge Assessment Start: 07/29/22 12:00 Freq: Status: Active Protocol: Document 07/29/22 12:01 [facility] (Rec: 07/29/22 12:02 [id number]) Discharge Planning Assessment Assigned Sand Carrier JELENA Haro DPOA/Assigned Designee Name spouse Slade Contact Information [phone] Advance Directives? No Advance Directives on File No History Provided By Patient,Family Member,Medical Record Has Patient been admitted in last 30 No days? Prior Living Arrangements House Household Members spouse Type of transporation used prior to Drives own vehicle admit Independent with ADL's Yes Is patient alert and oriented? Yes Caregiver for Another No Patient/Family Preference OP PT Therapy Barriers to Discharge No Discharge Plan Home Community Services Physical Therapy Transportation Arrangement Spouse to provide transport at d/c Referrals Initiated None needed Whiteboard Updated in Patient Room with Yes name and ext. # of Sand Carrier Review Status In Process Please Provide Date Initial DC 07/29/22 Assessment Was Performed Next Review Type Continued Stay Review Pre-Anesthesia Assessment Start: 07/21/22 12:50 Freq: Status: Active Protocol: Document 07/21/22 12:50 [facility] (Rec: 07/21/22 13:22 [facility] [id number]) Pre-Anesthesia Assessment Patient Information Reviewed Via Phone Assessment Diagnostic Results BMP/CMP,CBC,EKG,Urinalysis Comment Labs/EKG @ 07/20/22 Primary Care Provider Yelena Squires Seen Specialist in Last 12 Months Yes Specialist Seen Orthopedist Primary Language Mongolian Dialysis Chief Equipment Technician Required No Height 163.83 cm Weight 80.739 kg Body Mass Index (BMI) 30.0 Hearing Ability Normal Visual Assist Glasses,Magnifying Glass Dentition Type Teeth, Natural Present Barriers to Learning None Hx Anesthesia Reactions Yes: PONV with GA Hx Family Anesthesia Reaction No Hx Malignant Hyperthermia No Hx Blood Transfusions Yes: in 1974 r/t hemorrhage after delivery Hx Blood Transfusion Reaction Yes: Shaking, there was an antibody in the blood they missed Anesthesia Review Requested No Institutional Research Director No alcohol intake current alcohol intake frequency a few times a week Smoking Status Former smoker how long ago did patient quit smoking Quit approx 1973 Substance Use Type does not use Pain Present Pain Reported Musculoskeletal Symptoms Abnormal Gait,Difficulty Walking,Joint Pain History of Falling (Recent or History of Yes ) Patient is completely paralyzed or No completely immobile Prosthesis or Orthotic Device Cane Mental Status Oriented to own ability Is patient on oxygen? No Does patient have VELÁSQUEZ/SOB No Hx Sleep Apnea No Currently Taking a Beta Baljit Yes: Metoprolol Can You Climb a Flight of Stairs Without Yes SOB Hx Chest Pain No Hx SOB No Hx Syncope or Dizziness No Anti-Coagulant Therapy No Has a Typing Checker No Cardiac Testing No Hx Pacemaker/ICD No Pacemaker Rep Required? No Cardiac Clearance Received Not Applicable Diet Type At Home Regular Dysphagia No Gastrointestinal Symptoms None Chronic UTI No Bladder Pattern Frequency,Incontinent, Stress, Urgency Urinary Catheter Present No Hx Urinary Self Catheterization No Diabetes No HgbA1C 5.5 Date 07/20/22 Patient No Lactating No Hx Drug Resistant Organism No Presence of External or Internal Medical No Devices Have you had any close contact with No someone diagnosed with COVID-19? Received a COVID vaccine? Yes Received all doses? No Marital Status Lives With spouse Current Living Arrangements House Number of Floors (Floors) One Floor Number of Stairs To Enter/Railing? 2 Support System Spouse Does the Patient Have Assistance After Yes Surgery Patient Discharge Plan Description Return Home Comment Pt not advised on length per surgeon office Feels Safe in Current Environment Yes Been Physically Hurt or Threatened By a No Person in Current Environment Do you have thoughts of harming yourself None or others? Are you currently considering suicide? No Do you have a plan to hurt yourself or No Plan others? Do You Have Any Spiritual Beliefs That No May Affect Your HC Choices? Do You Have Any Cultural Practices That No May Affect Your HC Choices? Comment Alevism Who Can We Speak to About Patient's Care Family only Identifying Code for Release of Patient Deborah Information Health Care Proxy/Next of Kin Slade () Health Care Proxy Emergency Contact Name Slade () Emergency Contact Advance Directives? No Power of Audit Consultant No PAC Instructions Do not shave/clip surgical site,Durable medical equipment ,Medications to take/avoid, Nasal antibiotic,No ETOH/ petroleum product on skin DOS, NPO,Pre-surgical wash,Sensory aids,Sturdy shoes/comfortable clothes,Do not bring valuables and remove jewelry
--- NOTE | 2022-07-29 12:10 | PT.IPTN ---
Current Diagnoses Other unilateral secondary osteoarthritis of hip (07/28/22) Presence of unspecified artificial hip joint (07/28/22) Surgery Performed Operation Date: 07/28/22 10:45 Actual Procedures p Total Hip Arthroplasty(Left) - Aurora Whitlock MD Physical Therapy Treatment Note M2 PT-IP Current Condition Start: 07/28/22 18:14 Freq: NEEDED Status: Active Protocol: Document 07/28/22 18:14 ES (Rec: 07/28/22 18:27 ES [id number]) Physical Therapy Current Condition Current Condition Evaluation Date 07/28/22 Treatment Diagnosis S/p L JANAY Onset Date 07/28/22 M3 PT-IP Subjective Start: 07/28/22 18:14 Freq: NEEDED Status: Active Protocol: Document 07/29/22 11:54 ES (Rec: 07/29/22 12:09 ES [id number]) Subjective Physical Therapy Visit Type Type Treatment Note Visit Start Time 11:22 Visit Stop Time 11:50 Total Visit Minutes 28 Number of IT OPERATIONS ANALYST Visits 0 Physical Therapy Visit Comments Patient Comments Patient up and dressed, seated in recliner, present. Patient agreeable to work with PT, stating she still feels a bit nauseaus but better than this morning. M4 PT-IP Mobility and Gait Start: 07/28/22 18:14 Freq: NEEDED Status: Active Protocol: Document 07/29/22 11:54 ES (Rec: 07/29/22 12:09 ES [id number]) PT-Bed Mobility Assessment Sit to Supine Sit to Supine Minimal Assistance Scooting Scooting Up and Down in Bed Independent PT-Transfer Assessment Sit to and From Stand Sit to and from Stand Standby Assistance,Use of Upper Extremities Equipment Transfer Assistive Device Gait Belt,Front Wheeled Walker Transfers Transfer Destination Bed,Wheelchair Transfer Technique Ambulation, stand pivot Transfer Ability Level of Assist Standby Assistance,Use of Upper Extremities Comments Mobility Comments Cues for placing L foot forward during STS to reduce hip flexion. Gait Assessment Gait Gait Assistance Required: Standby Assistance Distance (Feet) 80 Able to Maintain Weight Bearing Status Yes During Gait Assistive Devices Assistive Device Gait Belt,Front Wheeled Walker Gait Deviations General Gait Pattern Antalgic,Step-to Gait Factors Limiting Gait Function Factors Limiting Gait Function Decreased Strength,Pain Comments Gait Comments Patient had onset of sharp pain in L hip after 60 ft of ambulation which subsided enough to be able to continue walking. Stair Climbing Assessment Evaluation Level of Assist On Stairs Contact Guard Assistance Devices Stair Climbing Assistive Devices Left Railing,Right Railing Technique/Endurance Stair Climbing Direction Ascend and Descend Stair Climbing Technique Step to Step Number of Steps Climbed 3 Stair Climbing Set # Repetitions (reps) 1 Comments Stair Climbing Comments Patient unable to bear sufficient weight to be able to perform stairs without rails and became lightheaded after first attempt. Patient was sat into the chair and BP taken 82/33. Patient was returned to bed and BP taken again in supine 116/46. PT-Balance Assessment Sitting Balance and Reactions Static Sitting Balance Ability Good Dynamic Sitting Balance Ability Good Standing Balance and Reactions Static Standing Balance Ability Good Dynamic Standing Balance Ability Good Device Used FWW M5 PT-IP Objective Assessments Start: 07/28/22 18:14 Freq: NEEDED Status: Active Protocol: Document 07/28/22 18:14 ES (Rec: 07/28/22 18:27 ES [id number]) Orientation Orientation/Cognition Level of Alertness Alert Orientation Name,Age,Birthday,Month,Date, Year,Day of Week,Place, Situation Language Function Ability No Deficits Noted Safety Awareness Understands Safety Issues Memory Description No Deficits Noted Gross Range of Motion Upper Extremity ROM Assessment Within Functional Limits Lower Extremity ROM Assessment Left Impaired Impairments 2/2 hip precautions, pain Strength Upper Extremity Strength Assessment Within Functional Limits Lower Extremity Strength Assessment Left Impaired Comments Strength Comments 2/2 surgery; able to move LLE against gravity Sensation Assessment Comments Sensation Comments Patient reported numbness in L lower leg M6 PT-IP Treatment Start: 07/28/22 18:14 Freq: NEEDED Status: Active Protocol: Document 07/29/22 11:54 ES (Rec: 07/29/22 12:09 ES [id number]) Physical Therapy Treatment Education Education Provided Precautions,Safety M7 PT-IP Assessment and Plan Start: 07/28/22 18:14 Freq: NEEDED Status: Active Protocol: Document 07/29/22 11:54 ES (Rec: 07/29/22 12:09 ES [id number]) PT Summary Assessment and Plan Summary Impairments Pain,ROM,Strength,Balance, Sensation,Bed Mobility, Transfers,Gait Progress Towards Goals Slow Progress due to Pain,Slow Progress due to Activity Tolerance Assessment Summary Patient became symptomatically hypotensive after ambulation and stairs, with BP 82/33. BP recovered to 116/46 in supine. Nursing was notified. Patient had onset of sharp L hip pain during ambulation that persisted the rest of the visit including in supine. Cold pack applied at end of treatment. Patient will need to be able to tolerate ambulation and be more independent with stairs prior to d/c home. Will follow up this afternoon. Goals Bed Mobility Goal Independent Transfer Goal Independent,Front Wheeled Walker Gait Goal Independent,Front Wheel Walker Gait Distance 100 ft Other Goals Patient will be able to ascend /descend 2 stairs without rail with LRAD and SBA/TOPSTITCHER ZIGZAG. Days to Meet Goals 3 Frequency of Treatment Frequency Of Treatment Twice a Day Treatment Plan Physical Therapy Treatment Plan Bed Mobility Training,Transfer Training,Gait Training, Therapeutic Exercise,Post Op Education,Discharge Planning, Hot or Cold Pack Other Recommendations and Next Treatment Stair training with cane and Focus 's assistance. Monitor BP. Precautions Posterior Hip Precautions No Hip Flexion > 90 degrees,No Hip Internal Rotation,No Hip Adduction Weight Bearing Status Weight Bearing Status Weight Bear as Tolerated Recommendations To Nursing Amount of Assist Needed 1 Person Assist Discharge Recommendations PT Discharge Recommendations Home with Assistance, Outpatient PT Transportation Needs at Discharge Private Vehicle
[2022-07-29] MEDS: LACTATED RINGERS 500 ML 1000 ML IV (13:17)
--- NOTE | 2022-07-29 15:02 | PT.IPTN ---
Current Diagnoses Other unilateral secondary osteoarthritis of hip (07/28/22) Presence of unspecified artificial hip joint (07/28/22) Surgery Performed Operation Date: 07/28/22 10:45 Actual Procedures p Total Hip Arthroplasty(Left) - Aurora Whitlock MD Physical Therapy Treatment Note M2 PT-IP Current Condition Start: 07/28/22 18:14 Freq: NEEDED Status: Active Protocol: Document 07/28/22 18:14 ES (Rec: 07/28/22 18:27 ES [id number]) Physical Therapy Current Condition Current Condition Evaluation Date 07/28/22 Treatment Diagnosis S/p L JANAY Onset Date 07/28/22 M3 PT-IP Subjective Start: 07/28/22 18:14 Freq: NEEDED Status: Active Protocol: Document 07/29/22 14:52 ES (Rec: 07/29/22 15:02 ES [id number]) Subjective Physical Therapy Visit Type Type Treatment Note Visit Start Time 14:18 Visit Stop Time 14:42 Total Visit Minutes 24 Number of SALES CLERK Visits 0 Physical Therapy Visit Comments Patient Comments Patient reported feeling less nauseaus this afternoon. Had a spasm while in bed and her L leg jerked out to the side and woke her up. Not having as much sharp pain in the L hip but having soreness along the lateral thigh. Agreeable to try working with PT. present. M4 PT-IP Mobility and Gait Start: 07/28/22 18:14 Freq: NEEDED Status: Active Protocol: Document 07/29/22 14:52 ES (Rec: 07/29/22 15:02 ES [id number]) PT-Bed Mobility Assessment Supine to Sit Supine to Sit Standby Assistance PT-Transfer Assessment Sit to and From Stand Sit to and from Stand Independent,Use of Upper Extremities Equipment Transfer Assistive Device Gait Belt,Front Wheeled Walker Transfers Transfer Destination Chair,Wheelchair Transfer Technique Ambulation, stand pivot Transfer Ability Level of Assist Standby Assistance,Use of Upper Extremities Comments Mobility Comments Instructed to keep LLE straight while pivoting in bed to get to EOB and patient did better with supine to sit. Gait Assessment Gait Gait Assistance Required: Standby Assistance Distance (Feet) 80 Assistive Devices Assistive Device Gait Belt,Front Wheeled Walker Gait Deviations General Gait Pattern Antalgic,Step-to Gait Factors Limiting Gait Function Factors Limiting Gait Function Decreased Strength,Pain Comments Gait Comments Decreased reports of sharp pain. Stair Climbing Assessment Evaluation Level of Assist On Stairs Minimal Assistance Devices Stair Climbing Assistive Devices Straight Cane Technique/Endurance Stair Climbing Direction Ascend and Descend Stair Climbing Technique Step to Step Number of Steps Climbed 3 Stair Climbing Set # Repetitions (reps) 2 Comments Stair Climbing Comments Performed first with PT assist using PAN DEVULCANIZER HELPER and rail. Then had assist with PAN DEVULCANIZER HELPER and patient using cane, no rail. No lightheadedness this time. M5 PT-IP Objective Assessments Start: 07/28/22 18:14 Freq: NEEDED Status: Active Protocol: Document 07/28/22 18:14 ES (Rec: 07/28/22 18:27 ES [id number]) Orientation Orientation/Cognition Level of Alertness Alert Orientation Name,Age,Birthday,Month,Date, Year,Day of Week,Place, Situation Language Function Ability No Deficits Noted Safety Awareness Understands Safety Issues Memory Description No Deficits Noted Gross Range of Motion Upper Extremity ROM Assessment Within Functional Limits Lower Extremity ROM Assessment Left Impaired Impairments 2/2 hip precautions, pain Strength Upper Extremity Strength Assessment Within Functional Limits Lower Extremity Strength Assessment Left Impaired Comments Strength Comments 2/2 surgery; able to move LLE against gravity Sensation Assessment Comments Sensation Comments Patient reported numbness in L lower leg M6 PT-IP Treatment Start: 07/28/22 18:14 Freq: NEEDED Status: Active Protocol: Document 07/29/22 14:52 ES (Rec: 07/29/22 15:02 ES [id number]) Physical Therapy Treatment Education Education Provided Precautions,Safety M7 PT-IP Assessment and Plan Start: 07/28/22 18:14 Freq: NEEDED Status: Active Protocol: Document 07/29/22 14:52 ES (Rec: 07/29/22 15:02 ES [id number]) PT Summary Assessment and Plan Summary Impairments Pain,ROM,Strength,Balance, Sensation,Bed Mobility, Transfers,Gait Progress Towards Goals Slow Progress due to Pain,Slow Progress due to Activity Tolerance Assessment Summary Patient's BP remained stable this visit, reading 118/41 at end of session sitting up in recliner. Patient denied nausea, dizziness, or lightheadedness. She has not taken any narcotics, only Tylenol, ibuprofen, and mm relaxer. Recommended she consider taking prescribed oxycodone prior to d/c home to help with pain management getting in/out of the car and up/down stairs. Patient and able to demonstrate ability to go up/down stairs using cane safely with PAN DEVULCANIZER HELPER. Patient okay to d/c home with . Goals Bed Mobility Goal Independent Transfer Goal Independent,Front Wheeled Walker Gait Goal Independent,Front Wheel Walker Gait Distance 100 ft Other Goals Patient will be able to ascend /descend 2 stairs without rail with LRAD and SBA/PAN DEVULCANIZER HELPER. Days to Meet Goals 3 Frequency of Treatment Frequency Of Treatment Twice a Day Treatment Plan Physical Therapy Treatment Plan Bed Mobility Training,Transfer Training,Gait Training, Therapeutic Exercise,Post Op Education,Discharge Planning, Hot or Cold Pack Other Recommendations and Next Treatment Anticipate d/c home this Focus afternoon. Precautions Posterior Hip Precautions No Hip Flexion > 90 degrees,No Hip Internal Rotation,No Hip Adduction Weight Bearing Status Weight Bearing Status Weight Bear as Tolerated Recommendations To Nursing Amount of Assist Needed Standby Assistance Discharge Recommendations PT Discharge Recommendations Home with Assistance, Outpatient PT Transportation Needs at Discharge Private Vehicle
[2022-07-29] MEDS: TRAMADOL 50 MG TABLET PO (15:03)
== END 2022-07-29 15:20 | disposition home or self-care (01) ==
LOC: OR 08:50 → AC 08:51
PROVIDERS: Family Provider Nurse Practitioner Family; PCP Internal Medicine; Referring Provider Orthopaedic Surgery; Visit Provider Orthopaedic Surgery
PROC: 0SRB0JZ Replacement of Left Hip Joint with Synthetic Substitute, Open Approach (ICD-10-PCS; CPT 27130; principal; 2022-07-28 10:45)
DX: M16.12 Unilateral primary osteoarthritis, left hip (principal); Z87.39 Personal history of other diseases of the musculoskeletal system and connective tissue
CPT/HCPCS: 27130; 36415; 72170; 73502; 85014; 85018; 97116; 97161; 97165; 97530; 97535; C1776; C9290; J0171; J0690; J1100; J1200; J2405; J2704; J3010